=== PATIENT | female | born 1970 | race Caucasian/White ===

== ENCOUNTER 2016-10-03 19:42 | Emergency (ER) | payer MEDICAID ==
[~2016-10-03] VITALS: Ht 160 cm; Wt 61.4 kg
[~2016-10-03 19:42] MED LIST: ACET325T26 PO; ASCO500T8 PO; BISA10SU54 PR; CA C1TAB60 PO; CEFD300C2 PO; CIPR500T87 PO; DIVA500T2 PO; DOCU100C8 PO; ENOX60DI3 SQ; FAMO20TA7 PO; FERR325T20 PO; FLUC200T PO; FOLI-17 PO; GABA100C8 PO; GLIP5TAB10 PO; HYDR2TAB40 PO; LISI-170 PO; LORA-446 PO; MECL-85 PO; METF500T4 PO; METH500T7 PO; NAPR-874 PO; NICO1PAT4 TD; ONDA-39 PO; ONDA4TAB10 PO; ONDA4TAB13 SL; OXYC5TAB3 PO; PANT40TA3 PO; PHEN100T90 PO; POLY17PO5 PO; PRED20TA PO; SIMV20TA PO; SIMV40TA PO; SUMA50TA3 PO; TOBR3.5O OP; TRAM-28 PO; TRAM1TAB6 PO; TRAM50TA2 PO; WARF4TAB7 PO; WARF5TAB7 PO; WARF5TAB7 PO-COUM; WARF7.5T PO; maalox/diphenh/lido/sucralfate PO
[2016-10-03] MEDS ORDERED: MORPHINE SULFATE 4 MG/ML, 1ML ONE ×2 (20:58→22:16)
[2016-10-03] MEDS ORDERED: SODIUM CHLORIDE 0.9% 1,000ML IV ONE (21:00)
[2016-10-03] MEDS ORDERED: SODIUM CHLORIDE FLUSH 10ML SYR IVF ONE (21:00)
[2016-10-03] MEDS: MORPHINE SULFATE 4 MG/ML, 1ML IVPush PRN ×2 (21:03→22:19)
[2016-10-03] MEDS ORDERED: SODIUM CHLORIDE 0.9% 1,000ML IVBOLUS ONE ×2 (21:30→22:00)
[2016-10-03] MEDS ORDERED: TRAM100C3 PO (21:34)
[2016-10-03] MEDS ORDERED: ONDA4TAB7 PO (21:34)
[2016-10-03 21:37] LABS: ASPARTATE AMINO TRANSFERASE 11 U/L (15-37); BLOOD UREA NITROGEN 11 mg/dL (7-18)
[2016-10-03 21:46] LABS: HEMOGLOBIN 11.7 g/dL (11.7-16.4)
[2016-10-03 21:47] LABS: ANISOCYTOSIS 2+; MICROCYTOSIS 1+; OVALOCYTES 1+
[2016-10-03] MEDS ORDERED: HYDROmorphone 1 MG/ML, 1ML ONE (22:51)
[2016-10-03] MEDS ORDERED: HYDROmorphone 1 MG/ML, 1ML IV ONE (23:00)
[2016-10-04] MEDS ORDERED: FLUCONAZOLE 100 MG TABLET PO ONE (01:30)
[2016-10-04 02:11] VITALS: BP 128/79
== END 2016-10-04 02:32 | disposition home or self-care (01) ==
LOC: ED 20:12
DX: K64.8 Other hemorrhoids (principal); M54.5 Low back pain; K62.89 Other specified diseases of anus and rectum; D72.825 Bandemia; E11.9 Type 2 diabetes mellitus without complications; E78.00 Pure hypercholesterolemia, unspecified; I10 Essential (primary) hypertension
CPT/HCPCS: 36415; 80053; 81001; 83605; 83690; 85025; 87086; 96361; 96374; 96375; 96376; 99285; J1170; J7030

== ENCOUNTER 2016-10-22 19:14 | Emergency (ER) | payer SELFPAY ==
[~2016-10-22] VITALS: Ht 157.5 cm; Wt 62.3 kg
[~2016-10-22 19:14] MED LIST changes: -CEFD300C2 PO; +CEFD300C37 PO; +ONDA4TAB7 PO; +TRAM100C3 PO
[2016-10-22] MEDS ORDERED: ONDANSETRON 2MG/ML, 2ML IVPush ONE (20:00)
[2016-10-22] MEDS ORDERED: SODIUM CHLORIDE FLUSH 10ML SYR IVF ONE (20:00)
[2016-10-22] MEDS ORDERED: SODIUM CHLORIDE 0.9% 1,000ML IVBOLUS ONE ×2 (20:00→22:30)
[2016-10-22] MEDS ORDERED: ONDANSETRON 2MG/ML, 2ML ONE (20:06)
[2016-10-22] MEDS ORDERED: HYDROmorphone 1 MG/ML, 1ML ONE ×2 (20:06→21:24)
[2016-10-22 20:26] LABS: BLOOD UREA NITROGEN 7 mg/dL (7-18)
[2016-10-22 20:29] LABS: ASPARTATE AMINO TRANSFERASE 11 U/L (15-37)
[2016-10-22] MEDS: HYDROmorphone 1 MG/ML, 1ML IVPush PRN ×2 (20:33→21:28)
[2016-10-22] MEDS ORDERED: KETOROLAC 30 MG/1 ML ONE (22:23)
[2016-10-22] MEDS ORDERED: KETOROLAC 30 MG/1 ML IVPush ONE (22:30)
[2016-10-22 23:16] VITALS: BP 108/70
== END 2016-10-22 23:36 | disposition home or self-care (01) ==
LOC: ED 23:30
DX: R10.84 Generalized abdominal pain (principal); K59.00 Constipation, unspecified; G89.29 Other chronic pain; E11.9 Type 2 diabetes mellitus without complications; I10 Essential (primary) hypertension; F17.200 Nicotine dependence, unspecified, uncomplicated; E78.00 Pure hypercholesterolemia, unspecified; Z87.440 Personal history of urinary (tract) infections; Z86.718 Personal history of other venous thrombosis and embolism
CPT/HCPCS: 36415; 74000; 80053; 81001; 85025; 87086; 96361; 96374; 96375; 96376; 99285; J1170; J1885; J2405; J7030

== ENCOUNTER 2016-10-28 13:03 | Emergency (ER) | payer SELFPAY ==
[~2016-10-28] VITALS: Ht 165.1 cm; Wt 72.7 kg
[2016-10-28] MEDS ORDERED: ATRO10DR OP (14:58)
[2016-10-28] MEDS ORDERED: SIMV40TA3 PO (14:58)
[2016-10-28] MEDS ORDERED: PRED20TA PO (14:58)
[2016-10-28] MEDS ORDERED: DIFL5DRO OP (14:58)
[2016-10-28] MEDS ORDERED: MORPHINE SULFATE 4 MG/ML, 1ML ONE ×2 (15:23→15:53)
[2016-10-28] MEDS ORDERED: ONDANSETRON 2MG/ML, 2ML ONE (15:23)
[2016-10-28] MEDS: MORPHINE SULFATE 4 MG/ML, 1ML IVPush PRN ×2 (15:28→15:54)
[2016-10-28] MEDS ORDERED: ONDANSETRON 2MG/ML, 2ML IVPush ONE (15:30)
[2016-10-28] MEDS ORDERED: SODIUM CHLORIDE FLUSH 10ML SYR IVF ONE (15:30)
[2016-10-28] MEDS ORDERED: SODIUM CHLORIDE 0.9% 1,000ML IVBOLUS ONE (15:30)
[2016-10-28 15:48] LABS: BLOOD UREA NITROGEN 7 mg/dL (7-18)
[2016-10-28 15:52] LABS: ASPARTATE AMINO TRANSFERASE 6 U/L (15-37)
[2016-10-28 15:54] LABS: DIFF TOTAL CELLS COUNTED 100 CELL DIFF
[2016-10-28 15:56] LABS: ANISOCYTOSIS 2+; MICROCYTOSIS 1+; OVALOCYTES 1+; VERIFY COUNTS? YES
[2016-10-28] MEDS ORDERED: HYDROmorphone 1 MG/ML, 1ML IVPush PRN (16:30)
[2016-10-28] MEDS ORDERED: HYDROmorphone 1 MG/ML, 1ML ONE (16:33)
[2016-10-28 19:10] VITALS: BP 117/80
== END 2016-10-28 19:36 | disposition home or self-care (01) ==
LOC: ED 16:01
DX: R10.84 Generalized abdominal pain (principal); G89.29 Other chronic pain; R11.2 Nausea with vomiting, unspecified; E11.9 Type 2 diabetes mellitus without complications; I10 Essential (primary) hypertension; E78.5 Hyperlipidemia, unspecified; Z88.1 Allergy status to other antibiotic agents; Z88.8 Allergy status to other drugs, medicaments and biological substances; F17.200 Nicotine dependence, unspecified, uncomplicated
CPT/HCPCS: 36415; 74177; 80053; 81001; 83690; 85025; 87086; 96361; 96374; 96375; 99285; J1170; J2405; J7030; 87106